=== PATIENT | male | born 1960 | race Caucasian/White ===

== ENCOUNTER 2016-05-18 17:50 | Inpatient (IN) | payer OTHER | END 2016-05-19 18:19 | disposition EXP | DRG 951 | LOC: N03B 17:50 → UNDOADMIN 17:50 → N03B 05-19 14:09 → UNDOADMIN 05-19 14:09 → UNDODISIN 05-19 18:19 | DX: Z52.9 Donor of unspecified organ or tissue (principal) | CPT/HCPCS: 36620; 80048; 80076; 81001; 82977; 83735; 83930; 84100; 84295; 85007; 85027; 85610; 85730; 86403; 87040; 87086; 87205; 94003; J0690; J0696; J1644; J1953; J2060; J2250; J2270; J3010; J3480 ==